=== PATIENT | male | born 1990 | race Caucasian/White ===

== ENCOUNTER 2016-12-19 22:20 | Emergency (ER) | payer OTHER ==
[~2016-12-19] VITALS: Ht 167.6 cm; Wt 98.0 kg
[2016-12-20] MEDS ORDERED: PERTUSS(ACELL),DIPH,TET VAC/PF 0.5 ML VIAL IM ONE (01:00)
[2016-12-20] MEDS ORDERED: BACITRACIN 0.9 GM PACKET OINTMENT TP ONE (01:00)
[2016-12-20] MEDS ORDERED: IBUPROFEN 600 MG TABLET PO ONE (01:00)
[2016-12-20 01:22] VITALS: BP 132/69
== END 2016-12-20 01:29 | disposition home or self-care (01) ==
LOC: MERGE 22:25 → EMS 22:25
DX: S61.002A Unspecified open wound of left thumb without damage to nail, initial encounter (principal); W19.XXXA Unspecified fall, initial encounter; Y93.89 Activity, other specified; Y92.098 Other place in other non-institutional residence as the place of occurrence of the external cause; Y99.8 Other external cause status
CPT/HCPCS: 90471; 90715; 99283

== ENCOUNTER 2017-01-26 11:36 | Emergency (ER) | payer OTHER ==
[~2017-01-26] VITALS: Ht 193 cm; Wt 89.0 kg
[2017-01-26] MEDS ORDERED: LIDOCAINE HCL 1% 10 ML VIAL INJ ONE (15:00)
[2017-01-26] MEDS ORDERED: BACITRACIN 0.9 GM PACKET OINTMENT TP ONE (16:00)
[2017-01-26 16:13] VITALS: BP 128/72
== END 2017-01-26 17:26 | disposition home or self-care (01) ==
LOC: EMS 11:38
DX: S51.811A Laceration without foreign body of right forearm, initial encounter (principal); W45.8XXA Other foreign body or object entering through skin, initial encounter; Y93.39 Activity, other involving climbing, rappelling and jumping off; Y92.89 Other specified places as the place of occurrence of the external cause; Y99.8 Other external cause status
CPT/HCPCS: 12001; 99283; J3490

== ENCOUNTER 2023-06-02 20:07 | Emergency (ER) | payer OTHER ==
[~2023-06-02] VITALS: Ht 193 cm; Wt 113.6 kg
[2023-06-02 20:15] VITALS: BP 148/88; PULSE 94; RESP 15; TEMP 98.4
[2023-06-02] MEDS ORDERED: SILVER NITRATE APPLICATOR 1 EA STICK TP ONE (20:29)
[2023-06-02] MEDS: SILVER NITRATE APPLICATOR 1 EA STICK TP ONE (20:31)
== END 2023-06-02 20:41 | disposition home or self-care (01) ==
LOC: EMS 20:07
DX: R04.0 Epistaxis (principal)
CPT/HCPCS: 30901; 99284; Z7502; Z7610

== ENCOUNTER 2024-07-17 13:16 | Emergency (ER) | payer OTHER ==
[~2024-07-17] VITALS: Ht 193 cm; Wt 125.0 kg
[2024-07-17 13:17] VITALS: TEMP 98.3
[2024-07-17] MEDS ORDERED: CEPH500C3 PO (13:20)
[2024-07-17] MEDS ORDERED: MUPI22OI2 TP (13:20)
[2024-07-17] MEDS: HYDROCODONE/ACETAMINOPHEN 5-325 MG TABLET PO ONE (15:46)
[2024-07-17] MEDS: IBUPROFEN 600 MG TABLET PO ONE (15:47)
[2024-07-17] MEDS: DOXYCYCLINE HYCLATE 100 MG TABLET PO ONE (15:47)
[2024-07-17] MEDS: LIDOCAINE 1% 10 ML VIAL SQ ONE (15:48)
[2024-07-17] MEDS ORDERED: HYDR-4062 PO (16:53)
[2024-07-17] MEDS ORDERED: DOXY-354 PO (16:53)
[2024-07-17] MEDS ORDERED: IBUP-1554 PO (16:53)
[2024-07-17 17:05] VITALS: BP 118/72; PULSE 85; RESP 16; O2SAT 100
== END 2024-07-17 17:15 | disposition home or self-care (01) ==
LOC: EMS 13:19
DX: L02.01 Cutaneous abscess of face (principal); F12.90 Cannabis use, unspecified, uncomplicated
CPT/HCPCS: 99284; 10160; J3490